=== PATIENT | male | born 1970 | race Caucasian/White ===

== ENCOUNTER 2017-01-12 16:48 | Emergency (ER) | payer BC ==
[2017-01-12] MEDS ORDERED: Lidocaine 1% with EPINEPHrine 1:100,000 20 ML MDV INFILT ONE (17:04)
--- NOTE | 2017-01-12 17:05 | EDM.PDOC ---
ED HPI HEAD INJURY - General Chief Complaint: Head Injury Stated Complaint: GASH ON HEAD Time Seen by Provider: 01/12/17 16:50 Source of Information: Reports: Patient, Family, RN, RN notes reviewed History Limitations: Reports: No limitations - History of Present Illness INITIAL COMMENTS - FREE TEXT/NARRATIVE: Patient presents to the ED at [facility] after he sustained a blunt injury to the anterior occipital scalp. Patient states while using a drill press at home, the equipment fell forward, hitting the patient on the head, causing a laceration to the scalp. Patient denies any LOC. This is not a work related injury. Patient denies any previous injury or trauma to the head. Symptom Onset Date: 01/12/17 Timing/Duration: Reports: Sudden onset Location: Reports: occipital (anterior) Quality: Reports: constant, dull Severity: mild Place of Occurrence: home - Related Data Allergies/ADRs: Allergies Allergy/AdvReac Type Severity Reaction Status Date / Time No Known Allergies Allergy Verified 01/12/17 17:23 Home Meds: Home Meds . [No Known Home Meds] 01/12/17 [History] ED ROS GENERAL - Review of Systems Review Of Systems: See Below Constitutional: Denies: fever, chills, weakness HEENT: Reports: No symptoms Respiratory: Denies: shortness of breath, cough Cardiovascular: Denies: Chest pain, Palpitations Skin: Reports: wound (laceration to scalp) Neurological: Denies: dizziness, headache, numbness, paresthesia, tingling ED EXAM, HEAD INJURY - Physical Exam Exam: See Below Exam Limited By: No limitations General Appearance: alert, no apparent distress, obese Head: normocephalic, scalp lacerations (3.5 cm horizontal laceration anterior occipital; small grade venous ooze; tender to deep palpation) Nexus Criteria: No: altered level of consciousness, focal neurological deficit Eyes: bilateral eye: EOMI, normal inspection, PERRL Ears: normal external exam, normal canal, hearing grossly normal, normal TMs Nose: normal inspection, normal mucousa, no blood Throat/Mouth: Normal inspection, Normal oropharynx, No airway compromise Neck: non-tender, full range of motion, normal alignment, normal inspection Respiratory: no respiratory distress, lungs clear, normal breath sounds Cardiovascular: regular rate, rhythm Neurologic: alert, oriented x 3 Skin: Normal color, Warm/dry - [place] Coma Score Best Eye Response ([place]): (4) open spontaneously Best Verbal Response (Mary): (5) oriented Best Motor Response ([place]): (6) obeys commands Mary Total: 15 ED LACERATION/WOUND & YADY PROC - Laceration/Wound Repair Anterior Midline Occipital Head Lac/wound length in cm: 3.5 Appearance: subcutaneous, linear, clean Distal NVT: neuro & vascular intact Anesthetic type: local Local anesthesia - Lidocaine (Xylocaine): 1% with epi Local anesthetic volume: 5cc Skin prep: chlorhexidine (hibiciens), saline Exploration/Debridement/Repair: wound explored, in a bloodless field, explored to base, no foreign material found, wound margins revised Closed with: brianne (7 brianne placed without complications; wound edges nicely approximated) Sterile dressing applied: none Tetanus status addressed: Yes Complications: No Course - Vital Signs Last Recorded V/S: Last Vital Signs Temp 36.8 C 01/12/17 17:10 Pulse 70 01/12/17 17:10 Resp 18 01/12/17 17:10 BP 125/66 01/12/17 17:10 Pulse Ox 98 01/12/17 17:10 - Orders/Labs/Meds Orders: Active Orders 24 hr Category Date Time Status Vaccines to be Administered [RC] PER UNIT ROUTINE Care 01/12/17 18:03 Ordered C-Spine [Cervical Spine 2V or 3V] [CR] Stat Exams 01/12/17 17:40 Ordered Diphth,Pertuss(Acell),Tet Vac [Adacel] Med 01/12/17 18:03 Once 0.5 ml IM .ONCE ONE Meds: Medications Discontinued Medications Generic Name Dose Route Start Last Admin Trade Name Freq PRN Reason Stop Dose Admin Lidocaine/Epinephrine 20 ml 01/12/17 17:04 01/12/17 17:21 Xylocaine 1% With Epinephrine 1:100,000 INFILT 01/12/17 17:05 20 ml ONETIME ONE Administration Departure - Departure Time of Disposition: 18:10 Disposition: Home, Self-Care 01 Condition: good Clinical Impression: Closed head injury without loss of consciousness Qualifiers: Encounter type: initial encounter Qualified Code(s): S09.90XA - Unspecified injury of head, initial encounter Occipital scalp laceration Qualifiers: Encounter type: initial encounter Qualified Code(s): S01.01XA - Laceration without foreign body of scalp, initial encounter Blunt head injury Qualifiers: Encounter type: initial encounter Qualified Code(s): S09.8XXA - Other specified injuries of head, initial encounter Instructions: Head Injury, Adult, Stitches, Brianne, or Adhesive Wound Closure , Laceration Care, Adult, VIS, Diphtheria, Tetanus, and Pertussis (DTaP) - CDC Forms: ED Department Discharge Additional Instructions: 1. Stay well hydrated and rest 2. No work for the next 2 days 3. Watch for neurological changes 4. May alternate Tylenol/Advil as needed 5. See your Primary in 10 days for a wound recheck and possible staple removal - Problem List Review Problem List Initiated/Reviewed/Updated: Yes - My Orders Last 24 Hours: My Active Orders 01/12/17 17:40 C-Spine [Cervical Spine 2V or 3V] [CR] Stat 01/12/17 18:03 Vaccines to be Administered [RC] PER UNIT ROUTINE Diphth,Pertuss(Acell),Tet Vac [Adacel] 0.5 ml IM .ONCE ONE - Assessment/Plan Last 24 Hours: My Active Orders 01/12/17 17:40 C-Spine [Cervical Spine 2V or 3V] [CR] Stat 01/12/17 18:03 Vaccines to be Administered [RC] PER UNIT ROUTINE Diphth,Pertuss(Acell),Tet Vac [Adacel] 0.5 ml IM .ONCE ONE
[2017-01-12 17:11] VITALS: BP 125/66
[2017-01-12] MEDS ORDERED: Diphtheria,Pertussis(Acell),Tetanus Vaccine 0.5 ML Syringe IM ONE (18:03)
== END 2017-01-12 18:47 | disposition home or self-care (01) ==
LOC: VM.ED 16:48
DX: S09.90XA Unspecified injury of head, initial encounter (principal); S01.01XA Laceration without foreign body of scalp, initial encounter; W31.1XXA Contact with metalworking machines, initial encounter; Y92.009 Unspecified place in unspecified non-institutional (private) residence as the place of occurrence of the external cause
CPT/HCPCS: 12002; 72040; 90715; 99283